=== PATIENT | female | born 1995 | race Caucasian/White ===

== ENCOUNTER 2016-11-22 21:47 | Emergency (ER) | payer MEDICAID ==
[~2016-11-22] VITALS: Ht 167.6 cm; Wt 90.7 kg
[2016-11-22 22:00] VITALS: BP 130/68
[2016-11-22] MEDS ORDERED: KETOROLAC TROMETH 60MG/2ML VIAL IM ONE (23:15)
== END 2016-11-23 01:16 | disposition home or self-care (01) ==
LOC: ER 21:50
DX: S70.212A Abrasion, left hip, initial encounter (principal); S70.211A Abrasion, right hip, initial encounter; S30.810A Abrasion of lower back and pelvis, initial encounter; I10 Essential (primary) hypertension; V49.9XXA Car occupant (driver) (passenger) injured in unspecified traffic accident, initial encounter; Y93.89 Activity, other specified; Y99.8 Other external cause status; Y92.488 Other paved roadways as the place of occurrence of the external cause
CPT/HCPCS: 72125; 96372; 99284; J1885